=== PATIENT | male | born 1970 | race Caucasian/White ===

== ENCOUNTER → 2016-12-10 | Outpatient (CLI) | payer BC ==
--- NOTE | 2016-12-10 12:39 | XR ---
EXAMINATION TYPE: XR chest 2V DATE OF EXAM: 12/10/2016 COMPARISON: NONE TECHNIQUE: PA and lateral views submitted. HISTORY: Cough FINDINGS: Subsegmental infiltrate in the right upper lobe and right lower lobe. Left lung clear. No pneumothora x. Biapical pleural thickening. No interstitial edema. IMPRESSION: 1. Right lower and upper lobe areas of infiltrate could represent early pneumonia. Follow to resoluti on to exclude other etiologies. A [place] message has been communicated to Hemant Chavarria Jr, DO via the [facility]. Critical Res ult system on 12/10/2016 12:36 PM, Message ID [id number].
== END | disposition home or self-care (01) ==
LOC: RADXRMAIN 12:24
PROVIDERS: ATTEND Family Medicine
DX: R91.8 Other nonspecific abnormal finding of lung field (principal); R05 Cough
CPT/HCPCS: 71020

== ENCOUNTER → 2021-10-02 | Outpatient (CLI) | payer BC ==
--- NOTE | 2021-10-02 09:57 | CTL ---
EXAMINATION TYPE: CT Low Dose Lung DATE OF EXAM ORDERED: 10/02/2021 HISTORY: 51-year-old male Z8 7.891, personal history of tobacco use. Lung cancer screening CT DLP: 132.[address] CTDI: 3.7 mGy Automated exposure control for dose reduction was used. SCREENING VISIT: Baseline screening COMPARISON: Chest radiograph 12/10/2016 TECHNIQUE: Low dose computed tomography scan was performed through the chest with coronal and sagitta l reconstructions. CT DIAGNOSTIC QUALITY: Satisfactory FINDINGS: Heart normal size without pericardial effusion. Ectatic aortic root at 3.7 cm. Ectatic ascending aorta at 3.8 cm. Ectatic distal arch at 3.4 cm. Mild bilateral gynecomastia. No thoracic lymphadenopathy by CT size criteria. Benign calcified granuloma at the right base. Mild biapical pleural-parenchymal scarring. Mild diffus e bronchial wall thickening. No consolidation or pleural effusion. No suspicious pulmonary nodule or mass. Visualized upper abdomen shows no gross abnormality. Bones: Levoconvex scoliosis along the upper thoracic spine. IMPRESSION: 1. A benign calcified granuloma at the right base. No suspicious pulmonary nodules. 2. Mild diffuse bronchial wall thickening suggests bronchitis or chronic asthma. Clinically correlate . CT LUNG RAD AND CT CHEST RECOMMENDATION: Lung-Rad 2 Benign Appearance or Behavior: Continue annual sc reening with LDCT in 12 months. S Modifier (other clinically significant findings): None
== END | disposition home or self-care (01) ==
LOC: RADCTMAIN 07:08
PROVIDERS: ATTEND Family Medicine
DX: J84.10 Pulmonary fibrosis, unspecified (principal)
CPT/HCPCS: 71271

== ENCOUNTER → 2023-06-30 | Outpatient (CLI) | payer BC ==
--- NOTE | 2023-07-01 09:07 | US ---
EXAMINATION TYPE: US groin LT DATE OF EXAM: 06/30/2023 COMPARISON: NONE CLINICAL INDICATION: Male, 53 years old with history of N50.82 SCROTAL PAIN K40 BI INGUINAL HERNIA, W/O O; Sharp pain in lower abdomen to testicles when sitting up about 2 weeks ago TECHNIQUE: FINDINGS: Hernia left inguinal canal = 1.9 x 1.9 x 2.2 cm IMPRESSION: 1. Left inguinal hernia
--- NOTE | 2023-07-01 09:11 | US ---
EXAMINATION TYPE: US groin RT DATE OF EXAM: 06/30/2023 COMPARISON: NONE CLINICAL INDICATION: Male, 53 years old with history of N50.82 SCROTAL PAIN K40 BI INGUINAL HERNIA, W/O O; Sharp pain in lower abdomen to testicle about 2 weeks ago TECHNIQUE: FINDINGS: No abnormalities noted. IMPRESSION: 1. Unremarkable right inguinal ultrasound
--- NOTE | 2023-07-01 09:13 | US ---
EXAMINATION TYPE: US scrotum with doppler. Grayscale and color Doppler Duplex imaging performed of vaibhav salazar scrotum. DATE OF EXAM: 06/30/2023 COMPARISON: NONE CLINICAL INDICATION: Male, 53 years old with history of N50.82 SCROTAL PAIN K40 BI INGUINAL HERNIA, W/O O; Sharp pain when sitting up from lower abdomen to testicle about 2 weeks ago EXAM MEASUREMENTS: TESTICLES: Right Testicle: 4.2 x 2.5 x 3.5 cm Left Testicle: 5.3 x 2.4 x 3.2 cm EPIDIDYMIS HEAD: Right Epididymis: 1.1 x 1.2 x 1.8 cm Left Epididymis: 0.6 x 1.6 x 0.8 cm Doppler performed to assess for testicular vascularity; good bilateral color flow and waveforms are s een. There is no evidence of testicular torsion. Presence of hydroceles: no Presence of varicoceles: no IMPRESSION: 1. Unremarkable scrotal ultrasound.
== END | disposition home or self-care (01) ==
LOC: RADUSWWP 09:03
PROVIDERS: ATTEND Family Medicine
DX: N50.82 Scrotal pain (principal); K40.20 Bilateral inguinal hernia, without obstruction or gangrene, not specified as recurrent
CPT/HCPCS: 76870; 93975

== ENCOUNTER 2023-07-13 14:02 | Emergency (ER) | payer BC ==
--- NOTE | 2023-07-13 14:53 | ED ---
General Adult HPI - General Chief complaint: Shortness of Breath Stated complaint: SOB,Dizziness Time Seen by Provider: 07/13/23 14:15 Source: patient, family, RN notes reviewed, old records reviewed Mode of arrival: ambulatory Limitations: no limitations - History of Present Illness Initial comments: This is a 53-year-old male who presents to the emergency department stating that when he got up this morning he felt a little dizzy and all day long he had episodes of dizziness. Patient states after he got out of work and got out of his truck he felt extremely dizzy and it scared him so he came to the emergency department. Patient states he found it a little bit off balance and feeling dizzy. Patient denies a headache. Patient denies any blurred vision. Patient Nuys any numbness or weakness. Patient denies chest pain difficulty breathing s hortness of breath or palpitations. Patient states he is never had this before. Patient denies any head trauma. Patient denies any recent fever chills or cough. Patient denies any hearing loss or tinnitus. Patient also complained of 2 months of left flank pain under the left lateral ribs he states he had an ultrasound and has a follow-up appointment with Dr. Serrano - Related Data Previous Rx's Medication Instructions Recorded Cephalexin [Keflex] 500 mg PO Q6HR #40 cap 10/16/15 Docusate [Colace] 100 mg PO BID #60 capsule 10/16/15 HYDROcodone/APAP 7.5-325MG [Dimock 1 - 2 each PO Q6HR PRN #90 tab 10/16/15 7.5] Ibuprofen [Motrin] 600 mg PO Q6HR PRN #20 tab 07/13/23 Meclizine [Antivert] 25 mg PO TID #20 tab 07/13/23 Allergies Allergy/AdvReac Type Severity Reaction Status Date / Time No Known Allergies Allergy Verified 10/15/15 17:23 Review of Systems ROS Statement: Those systems with pertinent positive or pertinent negative responses have been documented in the HPI. ROS Other: All systems not noted in ROS Statement are negative. Past Medical History Past Medical History: No Reported History Additional Past Medical History / Comment(s): heria History of Any Multi-Drug Resistant Organisms: None Reported Past Surgical History: No Surgical Hx Reported, Orthopedic Surgery Past Psychological History: No Psychological Hx Reported Past Alcohol Use History: Occasional Past Drug Use History: None Reported General Exam - General Exam Comments Initial Comments: GENERAL: Patient is well-developed and well-nourished. Patient is nontoxic and well- hydrated and is in mild distress. ENT: Neck is soft and supple. No significant lymphadenopathy is noted. Oropharynx i s clear. Moist mucous membranes. Neck has full range of motion without eliciting any pain. EYES: The sclera were anicteric and conjunctiva were pink and moist. Extraocular movements were intact and pupils were equal round and reactive to light. Eyelids were unremarkable. No nystagmus PULMONARY: Unlabored respirations. Good breath sounds bilaterally. No audible rales rhonchi or wheezing was noted. CARDIOVASCULAR: There is a regular rate and rhythm without any murmurs gallops or rubs. ABDOMEN: Soft and nontender with normal bowel sounds. Patient has some the left flank tenderness just below the lateral left ribs SKIN: Skin is clear with no lesions or rashes and otherwise unremarkable. NEUROLOGIC: Patient is alert and oriented x3. Cranial nerves II through XII are grossly in tact. Motor and sensory are also intact. Normal speech, volume and content. Symmetrical smile. Patient's finger-nose testing was normal bilaterally. MUSCULOSKELETAL: Normal extremities with adequate strength and full range of motion. No lower extremity swelling or edema. No calf tenderness. LYMPHATICS: No significant lymphadenopathy is noted PSYCHIATRIC: Patient was mildly anxious Limitations: no limitations Course Vital Signs 07/13/23 14:15 Temperature 98.6 F Pulse Rate 93 Respiratory 18 Rate Blood Pressure 159/102 O2 Sat by Pulse 99 Oximetry Medical Decision Making - Medical Decision Making EKG is interpreted by myself. EKG shows a sinus rhythm at 75 bpm and there is an occasional PVC. Patient's OK interval is 154 QRS is 104 QT interval 399 QTc is 428. Patient EKG shows no ST segment ovation or depression. Was pt. sent in by a medical professional or institution (, PA, FIELD OPERATIONS MANAGER, urgent care, hospital, or detention...) When possible be specific @ -No Did you speak to anyone other than the patient for history (EMS, parent, family, police, friend...)? What history was obtained from this source @ -No Did you review nursing and triage notes (agree or disagree)? Why? @ -I reviewed and agree with nursing and triage notes Were old charts reviewed (outside hosp., previous admission, EMS record, old EKG, old radiological studies, urgent care reports/EKG's, detention records)? Report findings @ -I reviewed prior charts and prior lab work on this patient Differential Diagnosis (chest pain, altered mental status, abdominal pain women, abdominal pain men, vaginal bleeding, weakness, fever, dyspnea, syncope, headache, dizziness, GI bleed, back pain, seizure, CVA, palpatations, mental health, musculoskeletal)? @ -Differential Dizziness: Benign paroxysmal positional Vertigo, Menieres disease, otitis media, acoustic neuroma, vertebrobasilar insufficiency, cerebellar stroke, encephalitis, hypovolemic, arrhythmia, coronary artery syndrome, anemia, this is not meant to be an all-inclusive list EKG interpreted by me (3pts min.). @ -As above X-rays interpreted by me (1pt min.). @ -Chest x-ray shows no acute normality CT interpreted by me (1pt min.). @ -CT of the brain and CT angio of the head and neck showed no acute abnormality. CT of the abdomen pelvis shows no acute abnormality U/S interpreted by me (1pt. min.). @ -None done What testing was considered but not performed or refused? (CT, X-rays, U/S, labs)? Why? @ -None What meds were considered but not given or refused? Why? @ -None Did you discuss the management of the patient with other professionals (professionals i.e. , PA, FIELD OPERATIONS MANAGER, lab, RT, psych nurse, nursing home social worker, burn table operator, teacher, global chief experience officer, case aide)? Give summary @ -No Was smoking cessation discussed for >3mins.? @ -No Was critical care preformed (if so, how long)? @ -No Were there social determinants of health that impacted care today? How? (Homelessness, low income, unemployed, alcoholism, drug addiction, transportation, low edu. Level, literacy, decrease access to med. care, halfway, rehab)? @ -No Was there de-escalation of care discussed even if they declined (Discuss DNR or withdrawal of care, Hospice)? DNR status @ -No What co-morbidities impacted this encounter? (DM, HTN, Smoking, COPD, CAD, Cancer, CVA, ARF, Chemo, Hep., AIDS, mental health diagnosis, sleep apnea, mo rbid obesity)? @ -None Was patient admitted / discharged? Hospital course, mention meds given and ro jamaal, prescriptions, significant lab abnormalities, going to OR and other pertinent info. @ -Patient was given Valium and Antivert and his dizziness did improve. Patient continued to have left flank pain it seemed like it was associated with movement patient was given Toradol and told to take Motrin and follow-up with Dr. Serrano as previously scheduled. Patient will be given Antivert to go home wi . Undiagnosed new problem with uncertain prognosis? @ -No Drug Therapy requiring intensive monitoring for toxicity (Heparin, Nitro, Insulin, Cardizem)? @ -No Were any procedures done? @ -No Diagnosis/symptom? @ -Vertigo Acute, or Chronic, or Acute on Chronic? @ -Acute Uncomplicated (without systemic symptoms) or Complicated (systemic symptoms)? @ -Complicated Side effects of treatment? @ -No Exacerbation, Progression, or Severe Exacerbation? @ -No Poses a threat to life or bodily function? How? (Chest pain, [place], [place], pneumonia, PE, COPD, DKA, ARF, appy, cholecystitis, CVA, Diverticulitis, Homicidal, Suicidal, threat to staff... and all critical care pts) @ -No Diagnosis/symptom? @ -Flank pain Acute, or Chronic, or Acute on Chronic? @ -Acute Uncomplicated (without systemic symptoms) or Complicated (systemic symptoms)? @ -Complicated Side effects of treatment? @ -None Exacerbation, Progression, or Severe Exacerbation] @ -No Poses a threat to life or bodily function? @ -No - Lab Data Result diagrams: 07/13/23 14:53 07/13/23 14:53 Lab Results 07/13/23 07/13/23 07/13/23 Range/Units 14:53 14:53 14:53 WBC 6.2 (3.8-10.6) k/uL RBC 4.91 (4.30-5.90) m/uL Hgb 15.2 (13.0-17.5) gm/dL Hct 45.0 (39.0-53.0) % MCV 91.7 (80.0-100.0) fL MCH 31.0 (25.0-35.0) pg MCHC 33.8 (31.0-37.0) g/dL RDW 12.6 (11.5-15.5) % Plt Count 247 (150-450) k/uL MPV 7.5 Neutrophils % 64 % Lymphocytes % 26 % Monocytes % 7 % Eosinophils % 2 % Basophils % 1 % Neutrophils # 3.9 (1.3-7.7) k/uL Lymphocytes # 1.6 (1.0-4.8) k/uL Monocytes # 0.4 (0-1.0) k/uL Eosinophils # 0.1 (0-0.7) k/uL Basophils # 0.1 (0-0.2) k/uL PT 10.7 (10.0-12.5) sec INR 1.0 (<1.2) APTT 23.9 (22.0-30.0) sec Sodium 138 (137-145) mmol/L Potassium 4.5 (3.5-5.1) mmol/L Chloride 107 (98-107) mmol/L Carbon Dioxide 19 L (22-30) mmol/L Anion Gap 12 mmol/L BUN 18 (9-20) mg/dL Creatinine 0.99 (0.66-1.25) mg/dL Est GFR (CKD-EPI)AfAm >90 (>60 ml/min/1.73 sqM) Est GFR (CKD-EPI)NonAf 87 (>60 ml/min/1.73 sqM) Glucose 99 (74-99) mg/dL Calcium 9.8 (8.4-10.2) mg/dL Magnesium 2.1 (1.6-2.3) mg/dL Total Bilirubin 0.6 (0.2-1.3) mg/dL AST 27 (17-59) U/L ALT 25 (4-49) U/L Alkaline Phosphatase 55 (38-126) U/L Troponin I (0.000-0.034) ng/mL Total Protein 7.8 (6.3-8.2) g/dL Albumin 4.9 (3.5-5.0) g/dL Influenza Type A (PCR) (Not Detectd) Influenza Type B (PCR) (Not Detectd) RSV (PCR) (Not Detectd) SARS-CoV-2 (PCR) (Not Detectd) 07/13/23 07/13/23 Range/Units 14:53 14:53 WBC (3.8-10.6) k/uL RBC (4.30-5.90) m/uL Hgb (13.0-17.5) gm/dL Hct (39.0-53.0) % MCV (80.0-100.0) fL MCH (25.0-35.0) pg MCHC (31.0-37.0) g/dL RDW (11.5-15.5) % Plt Count (150-450) k/uL MPV Neutrophils % % Lymphocytes % % Monocytes % % Eosinophils % % Basophils % % Neutrophils # (1.3-7.7) k/uL Lymphocytes # (1.0-4.8) k/uL Monocytes # (0-1.0) k/uL Eosinophils # (0-0.7) k/uL Basophils # (0-0.2) k/uL PT (10.0-12.5) sec INR (<1.2) APTT (22.0-30.0) sec Sodium (137-145) mmol/L Potassium (3.5-5.1) mmol/L Chloride (98-107) mmol/L Carbon Dioxide (22-30) mmol/L Anion Gap mmol/L BUN (9-20) mg/dL Creatinine (0.66-1.25) mg/dL Est GFR (CKD-EPI)AfAm (>60 ml/min/1.73 sqM) Est GFR (CKD-EPI)NonAf (>60 ml/min/1.73 sqM) Glucose (74-99) mg/dL Calcium (8.4-10.2) mg/dL Magnesium (1.6-2.3) mg/dL Total Bilirubin (0.2-1.3) mg/dL AST (17-59) U/L ALT (4-49) U/L Alkaline Phosphatase (38-126) U/L Troponin I <0.012 (0.000-0.034) ng/mL Total Protein (6.3-8.2) g/dL Albumin (3.5-5.0) g/dL Influenza Type A (PCR) Not Detected (Not Detectd) Influenza Type B (PCR) Not Detected (Not Detectd) RSV (PCR) Not Detected (Not Detectd) SARS-CoV-2 (PCR) Not Detected (Not Detectd) Disposition Clinical Impression: Vertigo, Flank pain Disposition: HOME SELF-CARE Condition: Good Prescriptions: Meclizine [Antivert] 25 mg PO TID #20 tab Ibuprofen [Motrin] 600 mg PO Q6HR PRN #20 tab PRN Reason: For pain Is patient prescribed a controlled substance at d/c from ED?: No Referrals: Reno Romano DO [Primary Care Provider] - 1-2 days Time of Disposition: 18:14
[2023-07-13 15:02] LABS: Basophils # (A) 0.1 k/uL (0-0.2); Basophils % (A) 1 %; Eosinophils # (A) 0.1 k/uL (0-0.7); Eosinophils % (A) 2 %; HGB 15.2 gm/dL (13.0-17.5); Lymphocytes # (A) 1.6 k/uL (1.0-4.8); Lymphocytes % (A) 26 %; MCHC 33.8 g/dL (31.0-37.0); MCV 91.7 fL (80.0-100.0); Mean Platelet Volume 7.5; Monocytes # (A) 0.4 k/uL (0-1.0); Monocytes % (A) 7 %; Neutrophils # (A) 3.9 k/uL (1.3-7.7); Neutrophils % (A) 64 %; Platelet Count 247 k/uL (150-450); RBC 4.91 m/uL (4.30-5.90); RDW 12.6 % (11.5-15.5); WBC 6.2 k/uL (3.8-10.6)
[2023-07-13 15:09] LABS: Partial Thromboplastin Time 23.9 sec (22.0-30.0); Prothrombin Time 10.7 sec (10.0-12.5)
--- NOTE | 2023-07-13 15:11 | XR ---
EXAMINATION TYPE: XR chest 2V DATE OF EXAM: 07/13/2023 COMPARISON: 12/10/2016. HISTORY: Chest pain. TECHNIQUE: Frontal and lateral views of the chest are obtained. FINDINGS: There is no focal air space opacity, pleural effusion, or pneumothorax seen. The cardiac silhouette size is within normal limits. The osseous structures are intact. IMPRESSION: No acute cardiopulmonary process.
[2023-07-13 15:12] LABS: ALT 25 U/L (4-49); AST 27 U/L (17-59); African American GFR (CKD) >90 (>60 ml/min/1.73 sqM); Albumin 4.9 g/dL (3.5-5.0); Alkaline Phosphatase 55 U/L (38-126); Anion Gap 12 mmol/L; Blood Urea Nitrogen 18 mg/dL (9-20); Calcium 9.8 mg/dL (8.4-10.2); Carbon Dioxide 19 mmol/L (22-30); Chloride 107 mmol/L (98-107); Glucose 99 mg/dL (74-99); Magnesium 2.1 mg/dL (1.6-2.3); Non-African American GFR(CKD) 87 (>60 ml/min/1.73 sqM); Potassium 4.5 mmol/L (3.5-5.1); Sodium 138 mmol/L (137-145); Total Bilirubin 0.6 mg/dL (0.2-1.3); Total Protein 7.8 g/dL (6.3-8.2)
[2023-07-13 15:21] VITALS: RESP 18
[2023-07-13] MEDS: MECLIZINE 25 MG TAB PO STA (15:22)
[2023-07-13] MEDS: SODIUM CHLORIDE 0.9% 1,000 ML IV STA (15:24)
[2023-07-13] MEDS: HYDROmorphone 0.5 MG/0.5 ML SYRINGE IVP STA (16:10)
--- NOTE | 2023-07-13 16:22 | CT ---
EXAMINATION TYPE: CT brain wo con CT DLP: 1211.6 mGycm, Automated exposure control for dose reduction was used. DATE OF EXAM: 07/13/2023 3:50 PM COMPARISON: None. CLINICAL INDICATION:Male, 53 years old with history of Dizziness, dizziness and sob TECHNIQUE: Brain: Axial CT images of the brain were obtained with coronal and sagittal reformats created and rev iewed. Contrast used: None. Oral contrast used: None. FINDINGS: Brain: Extra-axial spaces: No abnormal extra-axial fluid collections. Ventricular system: Within normal limits Cerebral parenchyma: No acute intraparenchymal hemorrhage or mass effect. The gary-white junction is well differentiated. Cerebellum: Unremarkable. Mass effect: No evidence of midline shift. Intracranial vasculature: unremarkable Soft tissues: Normal. Calvarium/osseous structures: No depressed skull fracture. Paranasal sinuses and mastoid air cells: Mild scattered paranasal sinus disease. Visualized orbits: Orbital contents are intact. IMPRESSION: No acute intracranial process.
--- NOTE | 2023-07-13 16:24 | CT ---
EXAMINATION TYPE: CT angio head neck CT DLP: 685.2 mGycm, Automated exposure control for dose reduction was used. DATE OF EXAM: 07/13/2023 4:01 PM COMPARISON: Same day CT head.. CLINICAL INDICATION:Male, 53 years old with history of Dizziness; PHH, dizziness and sob TECHNIQUE: Axially acquired helical CT angiogram of the head and neck was obtained with contrast. Axi al images are supplemented with 3D reconstructions and MIP images which were post-processed at an in dependent workstation. NASCET criteria used. Contrast used:65ml mL of Isovue 370 with IV Contrast, Oral contrast used: None. FINDINGS: CTA HEAD: No evidence of acute intracranial hemorrhage, mass effect, or midline shift. The ventricles, sulci, a nd cisterns are unremarkable. The visualized portions of the internal carotid arteries, middle cerebral arteries, anterior cerebral arteries, and posterior cerebral arteries are patent. The basilar and vertebral arteries are patent. CTA NECK: Right Carotid System: The common carotid artery and external carotid artery are patent. The carotid bifurcation demonstrate s no evidence of hemodynamically significant stenosis. The remaining portions of the internal carotid artery demonstrate normal size without significant narrowing. Left Carotid System: The common carotid artery and external carotid artery are patent. The carotid bifurcation demonstrate s no evidence of hemodynamically significant stenosis. The remaining portions of the internal carotid artery demonstrate normal size without significant narrowing. Vertebral arteries are patent without evidence hemodynamically significant stenosis. There is a three-vessel aortic arch. The origins of the great vessels are patent. No evidence of hemo dynamically significant stenosis. IMPRESSION: 1. No evidence of dissection of the cervical internal carotid arteries or vertebral arteries or any e vidence of significant stenosis at the carotid bifurcations. 2. No evidence of intracranial high-grade stenosis or intracranial aneurysm.
--- NOTE | 2023-07-13 16:29 | CT ---
EXAMINATION: CT ABDOMEN AND PELVIS WITHOUT IV CONTRAST DATE OF EXAMINATION: 07/13/2023. COMPARISON: None available. INDICATION: Left-sided flank pain. PROCEDURE: Axial CT of the abdomen and pelvis was performed with sagittal and coronal reformatted i mages without contrast enhancement. The exam is limited because some types of pathology may not be ad equately demonstrated due to lack of contrast enhancement. CT dose lowering techniques were used, to include: automated exposure control, adjustment for patient size, and/or use of iterative reconstruct ion. FINDINGS: LOWER CHEST : The visualized lung bases are clear. There are no pleural or pericardial effusions. ABDOMEN: Liver and Biliary system: Normal. Adrenal glands: Normal. Kidneys and ureters: There is contrast seen within the renal collecting systems and ureters limiting evaluation for stones, however definitive hydronephrosis is not seen. There is no ureteral dilation. . Spleen: Normal. Pancreas: Normal. Gallbladder: Normal. Lymph nodes, Peritoneum and mesentery: There is no mesenteric or retroperitoneal lymphadenopathy. Gastrointestinal tract: There are no dilated loops of bowel or free intraperitoneal air. The append ix is normal. Aorta/IVC: No aortic aneurysm.. IVC normal. Abdominal wall: Normal. PELVIS: Fluid: There is no free fluid in the pelvis. Lymph Nodes: There is no pelvic or inguinal lymphadenopathy.. Urinary bladder: Normal. BONES: There are no osseous destructive lesions.. ADDITIONAL SIGNIFICANT FINDINGS: None. IMPRESSION: 1. No evidence of hydronephrosis. Limited evaluation for detection of stones as there is contrast wit hin the renal collecting systems, ureters and bladder from the recent contrast enhanced CT of the hea d and neck. 2. No bowel obstruction or appendicitis. 3. Diverticulosis without evidence of diverticulitis.
[2023-07-13] MEDS: KETOROLAC 15 MG/ML 1 ML VIAL IVP STA (18:16)
[2023-07-13 18:31] VITALS: BP 131/99; PULSE 86; TEMP 97.9
== END 2023-07-13 18:28 | disposition home or self-care (01) ==
LOC: EC 14:02
DX: R42 Dizziness and giddiness (principal); K57.90 Diverticulosis of intestine, part unspecified, without perforation or abscess without bleeding; Z20.822 Contact with and (suspected) exposure to COVID-19
CPT/HCPCS: 99285; 96374; 96375 ×2; 96361 ×2; 36415; 93005; 80053; 83735; 84484; 85025; 85610; 85730; 87636; 71046; 70496; 70450; 70498; 74176; J3360; J1885; J1170; Q9967

== ENCOUNTER → 2024-05-05 | Outpatient (CLI) | payer BC ==
--- NOTE | 2024-05-06 07:53 | CT ---
EXAMINATION TYPE: CT abdomen w con DATE OF EXAM: 05/05/2024 COMPARISON: CT abdomen and pelvis July 13, 2023 CLINICAL INDICATION: Male, 54 years old with history of R10.9 Abdominal pain; PHH, LUQ abdominal pain and swelling. TECHNIQUE: Performed with Oral Contrast and with IV Contrast, patient injected with 100ml mL of Isovue 300. CT DLP: [address] CTDI: 41 mGy Automated exposure control for dose reduction was used. FINDINGS: LUNG BASES: No significant abnormality is appreciated. LIVER/GB: No significant abnormality is appreciated. PANCREAS: No significant abnormality is seen. SPLEEN: No significant abnormality is seen. ADRENALS: No significant abnormality is seen. KIDNEYS: Symmetric cortical medullary uptake and excretion without hydronephrosis seen bilaterally. BOWEL: Oral contrast reaches level of proximal transverse colon. No abnormal small or large bowel di latation. LYMPH NODES: No significant abnormality is seen. OSSEOUS STRUCTURES: No significant abnormality is seen. FREE AIR: No free air is visualized. OTHER: No significant incidental finding. IMPRESSION: NO SUSPICIOUS NEW OR ACUTE FINDINGS PRESENT. [facility], , 05/06/2024 7:51 AM
== END | disposition home or self-care (01) ==
LOC: RADCTMAIN 08:47
PROVIDERS: ATTEND Internal Medicine Geriatric Medicine
DX: R10.9 Unspecified abdominal pain (principal)
CPT/HCPCS: 74160; Q9967

== ENCOUNTER → 2024-05-29 | Outpatient (CLI) | payer BC ==
--- NOTE | 2024-05-31 19:03 | MR ---
EXAMINATION TYPE: MR knee LT wo con DATE OF EXAM: 05/29/2024 1:36 PM COMPARISON: None. CLINICAL INDICATION: Male, 54 years old with history of M25.562 L knee pain, Left knee pain x 6 month s. IV Contrast: cc (None if empty) TECHNIQUE: Multiplanar, multisequence imaging of the left knee is performed without IV contrast. FINDINGS: There is a nondisplaced fracture of the medial femoral condyle with marked bone marrow edema. There is a minimal joint effusion and tiny Hancock's cyst. There is a partial tear of the medial collateral ligament. There is a complex tear of the posterior h orn and body of the medial meniscus. The cruciate and lateral collateral ligaments are intact. Lateral meniscus is intact. The articular cartilages are well preserved and there is no osteoarthritic change. The quadriceps and patellar tendons are intact. The anterior fat pads are normal IMPRESSION: 1. Nondisplaced fracture of the medial femoral condyle with marked bone marrow edema. 2. Partial tear of the medial collateral ligament. 3. Complex tear of the posterior horn and body of the medial meniscus [facility], , 05/31/2024 7:01 PM
== END | disposition home or self-care (01) ==
LOC: RADMRIMAIN 12:50
PROVIDERS: ATTEND Orthopaedic Surgery
DX: S72.432A Displaced fracture of medial condyle of left femur, initial encounter for closed fracture (principal); S83.412A Sprain of medial collateral ligament of left knee, initial encounter; R60.9 Edema, unspecified; M71.22 Synovial cyst of popliteal space [Baker], left knee; X58.XXXA Exposure to other specified factors, initial encounter

== ENCOUNTER → 2024-08-31 | Outpatient (CLI) | payer BC ==
--- NOTE | 2024-08-31 12:18 | XR ---
EXAMINATION TYPE: XR abdomen 2V DATE OF EXAM: 08/31/2024 11:58 AM COMPARISON: None. CLINICAL INDICATION: Male, 54 years old with history of R10.32 LEFT LOWER QUADRANT PAIN, TECHNIQUE: XR abdomen 2V views of the abdomen are submitted. FINDINGS: There is no convincing evidence of pneumoperitoneum. The Bowel gas pattern is nonspecific and nonobstructive. No sizable air-fluid levels are seen. No mass effects are noted. No renal calcifications are identified. IMPRESSION: 1. Nonspecific nonobstructive bowel gas pattern [facility], , 08/31/2024 12:15 PM
== END | disposition home or self-care (01) ==
LOC: RADXRMAIN 09:45
PROVIDERS: ATTEND Nurse Practitioner Family
DX: R14.0 Abdominal distension (gaseous) (principal); R10.32 Left lower quadrant pain
CPT/HCPCS: 74019

== ENCOUNTER → 2024-09-20 | Outpatient (CLI) | payer BC ==
--- NOTE | 2024-09-20 12:33 | FL ---
EXAMINATION TYPE: FL UGI air w small bowel DATE OF EXAM: 09/20/2024 9:57 AM COMPARISON: 05/05/2024. CLINICAL INDICATION:Male, 54 years old with history of R10.30 lower abdominal pain; TECHNIQUE: The procedure was explained and patient history elicited. All patient questions were ans wered prior to start of procedure. A baseball scout radiograph of the abdomen was also reviewed. Multiple flu oroscopic spot images of the esophagus, stomach and duodenum were obtained following ingestion of liq uid barium and EZ-gas crystals. After the completion of the upper gastrointestinal examination, a de tailed small bowel examination was performed. The patient was asked to ingest additional liquid jairon um and incremental frontal abdominal radiographs were then taken until contrast was visualized in the cecum. DAP: NOT REPORTED [id number] FINDINGS: Upper GI examination: The baseball scout abdominal radiograph demonstrates a normal bowel gas pattern without dilated loops of small or large bowel. There is no evidence for organomegaly or pneumoperitoneum. No abnormal calcificati ons. The visualized osseous structures are intact. The esophagus appears unremarkable without evidence of focal stricture, ulceration or abnormal outpou kevin. No hiatal hernia was visualized. Small gastroesophageal reflux was seen on dedicated small b owel follow-through images. The stomach and duodenum demonstrate a normal course and contour. There is no evidence of focal gastric or duodenal ulceration, stricture, or abnormal outpouching. Small bow el mucosal folds are felt to be within normal limits. Detailed small bowel examination: Contrast is seen extending from the duodenojejunal junction into the cecum after 30 minutes, which is within the expected time period. The small bowel follows normal distribution and contour without an y evidence of extraluminal or intraluminal irregularity. There is no displacement of bowel loops or extraluminal extravasation of contrast material. IMPRESSION: 1. Gastrointestinal reflux. 2. Fast transit from the stomach to cecum otherwise small bowel examination within normal limits. [facility], , 09/20/2024 12:31 PM
== END | disposition home or self-care (01) ==
LOC: RADFLMAIN 08:22
PROVIDERS: ATTEND Internal Medicine Gastroenterology
DX: K21.9 Gastro-esophageal reflux disease without esophagitis (principal)
CPT/HCPCS: 74240; 74248

== ENCOUNTER → 2024-11-27 | Outpatient (CLI) | payer BC ==
--- NOTE | 2024-11-27 14:41 | MR ---
EXAMINATION TYPE: MR abdomen wo/w con DATE OF EXAM: 11/27/2024 2:21 PM INDICATION: Patient age:Male; 54 years old; Reason for study: R10.32 L LOW ABD QUAD PAIN; [facility]. COMPARISON: Abdominal radiograph 08/31/2024, CT abdomen 05/05/2024, CT abdomen pelvis 07/13/2023 TECHNIQUE: Multiplanar multi-sequence imaging was performed without and with IV contrast. The patie nt was given 11 ccs of Gadobutrol intravenously and dynamic imaging was performed. Post IV contrast s ubtraction images were also submitted for review. FINDINGS: LOWER CHEST: Elevation of the right hemidiaphragm.. ABDOMEN Liver: Noncirrhotic morphology. No focal lesion. Diffuse dropout of signal on in phase imaging. Diffu sely T2 hypointense. Gallbladder and Bile ducts: Unremarkable. Pancreas: Unremarkable. Spleen: Diffuse dropout of signal on in phase imaging. Diffusely T2 hypointense. Adrenal glands: Unremarkable. Kidneys: No hydronephrosis. Subcentimeter nonenhancing right renal lower pole T2 hyperintense thin-wa lled cyst. Stomach and Bowel: Unremarkable as visualized. Peritoneum: No evidence of pneumoperitoneum, free fluid, or adenopathy. Vasculature: Unremarkable. No aortic aneurysm. Abdominal wall: Tiny fat filled umbilical hernia. Musculoskeletal: The osseous structures appear intact. Mild S-shaped scoliotic curvature of the thora columbar spine. IMPRESSION: 1. No evidence of abdominal mass. 2. Hemosiderosis involving the liver and spleen. [facility], , 11/27/2024 2:39 PM
== END | disposition home or self-care (01) ==
LOC: RADMRIMAIN 13:15
PROVIDERS: ATTEND Internal Medicine Gastroenterology
DX: E83.19 Other disorders of iron metabolism (principal)
CPT/HCPCS: 74183; A9585